=== PATIENT | male | born 1975 | race Caucasian/White ===

== ENCOUNTER 2019-04-07 01:52 | Outpatient (CLI) | payer MEDICAID | END 2019-04-07 01:53 | disposition critical access hospital (66) | LOC: EMS 01:52 | PROVIDERS: ATTEND Surgery | DX: Z03.89 Encounter for observation for other suspected diseases and conditions ruled out (principal); Z59.0 Homelessness ==

== ENCOUNTER 2019-04-07 02:04 | Emergency (ER) | payer MEDICAID ==
[2019-04-07 02:18] VITALS: BP 143/98
--- NOTE | 2019-04-07 02:19 | ED Physician Documentation ---
History of Present Illness - Stated complaint Stated Complaint: HOMELESS - History obtained from History obtained from: Patient, EMS - History of Present Illness Timing: Today Pain level max: 0 Pain level now: 0 - Additonal information Additional information: Patient states that he was [facility] the [place] [facility] today. States he has no where to go. He is from [place]. Patient has no complaints at this time. No medical complaints. He has a bag of his belongings and a cell phone. Review of Systems Constitutional: denies: Fever GI: denies: Vomiting Skin: denies: Rash Psychiatric: denies: Depressed, Suicidal, Homicidal PD PAST MEDICAL HISTORY - Past Medical History Past Medical History: Yes Psych: Other ("PTSS") - Allergies Allergies/Adverse Reactions: Allergies Allergy/AdvReac Type Severity Reaction Status Date / Time No Known Drug Allergies Allergy Verified 04/07/19 02:18 PD ED PE NORMAL - Vitals Vital signs reviewed: Yes - General General: Alert and oriented X 3, No acute distress, Well developed/nourished - HEENT HEENT: Moist mucous membranes, Pharynx benign - Neck Neck: Supple, no meningeal sign - Cardiac Cardiac: RRR, Strong equal pulses - Respiratory Respiratory: No respiratory distress, Clear bilaterally - Abdomen Abdomen: Soft, Non tender, Non distended - Derm Derm: Warm and dry - Extremities Extremities: No edema - Neuro Neuro: Alert and oriented X 3, workforce analyst 2-12 intact, No motor deficit, No sensory deficit, Normal speech - Psych Psych: Normal mood, Normal affect Results - Vitals Vitals: Vital Signs - 24 hr 04/07/19 02:11 Temperature 36 C L Heart Rate 88 Respiratory 15 Rate Blood Pressure 143/98 H O2 Saturation 95 Oxygen O2 Source Room air PD MEDICAL DECISION MAKING - ED course Complexity details: considered differential, d/w patient ED course: Patient with no medical complaints at this time. No emergency medical condition present. Patient will be discharged at this time. Patient became agitated at the time of discharge as he wants to stay in the hospital. Patient was informed that there is no medical reason to keep him in the hospital. Patient was then escorted out of the emergency department by police. This document was made in part using voice recognition software. While efforts are made to proofread this document, sound alike and grammatical errors may occur. Departure - Departure Disposition: 01 Home, Self Care Clinical Impression: Homeless Condition: Good Instructions: ED Screening Exam Medical Nonurgent Follow-Up: your,doctor as needed [Other] Comments: Follow up with your doctor for further care Discharge Date/Time: 04/07/19 02:32
== END 2019-04-07 02:32 | disposition home or self-care (01) ==
LOC: ED 02:04
DX: Z76.89 Persons encountering health services in other specified circumstances (principal); Z59.0 Homelessness
CPT/HCPCS: 99281; 99283

== ENCOUNTER 2019-04-07 05:08 | Outpatient (CLI) | payer MEDICAID | END 2019-04-07 05:09 | disposition critical access hospital (66) | LOC: EMS 05:08 | PROVIDERS: ATTEND Surgery | DX: R45.851 Suicidal ideations (principal) ==

== ENCOUNTER 2019-04-07 05:15 | Emergency (ER) | payer MEDICAID ==
[2019-04-07 05:36] VITALS: BP 154/94
--- NOTE | 2019-04-07 05:39 | ED Physician Documentation ---
History of Present Illness - Stated complaint Stated Complaint: MHE - Chief complaint Chief Complaint: MHE - History obtained from History obtained from: Patient - History of Present Illness Timing: Today Pain level max: 0 Pain level now: 0 Improved by: nothing Worsened by: nothing - Additonal information Additional information: 43-year-old male states that he is currently homeless and wants to go back to [facility]. He does not have any medical complaints at this time. He is not suicidal or homicidal. Review of Systems Constitutional: denies: Fever, Chills Respiratory: denies: Cough GI: denies: Vomiting Musculoskeletal: denies: Neck pain, Back pain, Extremity pain, Joint pain Neurologic: denies: Headache Psychiatric: denies: Depressed, Suicidal, Homicidal, Hallucinations PD PAST MEDICAL HISTORY - Past Medical History Psych: Other - Allergies Allergies/Adverse Reactions: Allergies Allergy/AdvReac Type Severity Reaction Status Date / Time No Known Drug Allergies Allergy Verified 04/07/19 02:18 - Social History Does the pt smoke?: No Smoking Status: Never smoker PD ED PE NORMAL - Vitals Vital signs reviewed: Yes - General General: Alert and oriented X 3, No acute distress, Well developed/nourished - HEENT HEENT: Moist mucous membranes - Neck Neck: Supple, no meningeal sign - Cardiac Cardiac: RRR, Strong equal pulses - Respiratory Respiratory: No respiratory distress, Clear bilaterally - Abdomen Abdomen: Soft, Non tender, Non distended - Derm Derm: Warm and dry - Neuro Neuro: Alert and oriented X 3 - Psych Psych: Normal mood, Normal affect Results - Vitals Vitals: Vital Signs - 24 hr 04/07/19 05:29 Temperature 37 C Heart Rate 94 Respiratory 18 Rate Blood Pressure 154/94 H O2 Saturation 97 Oxygen O2 Source Room air PD MEDICAL DECISION MAKING - ED course Complexity details: considered differential, d/w patient ED course: No emergency medical condition at this time. We were able to procure For him to go back to [facility] where he states he can go back to the [facility]. Not suicidal or homicidal. This document was made in part using voice recognition software. While efforts are made to proofread this document, sound alike and grammatical errors may occur. Departure - Departure Disposition: 01 Home, Self Care Clinical Impression: Homeless Condition: Good Instructions: ED Screening Exam Medical Nonurgent Follow-Up: your,doctor in 1 week [Other] Comments: Follow-up with your doctor for further care. Discharge Date/Time: 04/07/19 06:05
== END 2019-04-07 06:05 | disposition home or self-care (01) ==
LOC: EDUNIT# → ED 05:15
DX: Z76.89 Persons encountering health services in other specified circumstances (principal); Z59.0 Homelessness

== ENCOUNTER 2022-10-21 00:42 | Outpatient (CLI) | payer MEDICAID | END 2022-10-21 00:43 | disposition critical access hospital (66) | LOC: EMS 00:42 | DX: R09.89 Other specified symptoms and signs involving the circulatory and respiratory systems (principal); R11.2 Nausea with vomiting, unspecified | CPT/HCPCS: A0425; A0429; A0999 ==

== ENCOUNTER 2022-10-21 01:00 | Emergency (ER) | payer MEDICAID ==
[2022-10-21 01:13] VITALS: BP 138/94
[2022-10-21] MEDS ORDERED: ONDANSETRON ODT 4 MG TABLET TL STA (01:18)
[2022-10-21] MEDS ORDERED: FAMOTIDINE 20 MG TABLET PO STA (01:18)
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
== END 2022-10-21 02:23 | disposition home or self-care (01) ==
LOC: EDBD → EDUNIT# → ED 01:00
DX: R11.2 Nausea with vomiting, unspecified (principal); K21.9 Gastro-esophageal reflux disease without esophagitis
CPT/HCPCS: 99283; A9270; Q0162

== ENCOUNTER 2024-01-22 22:38 | Outpatient (CLI) | payer MEDICAID | END 2024-01-22 22:39 | disposition critical access hospital (66) | LOC: EMS 22:38 | DX: H92.02 Otalgia, left ear (principal); Y09 Assault by unspecified means; R45.1 Restlessness and agitation; Z59.02 Unsheltered homelessness | CPT/HCPCS: A0425; A0429 ==

== ENCOUNTER 2024-01-22 22:48 | Emergency (ER) | payer MEDICAID ==
[2024-01-22 23:15] VITALS: BP 132/81; O2SAT 98
[2024-01-22] MEDS: IBUPROFEN 600 MG TABLET PO STA (23:55)
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
== END 2024-01-22 23:56 | disposition home or self-care (01) ==
LOC: EDUNIT# → ED 22:48
DX: S00.03XA Contusion of scalp, initial encounter (principal); Y09 Assault by unspecified means; Z91.148 Patient's other noncompliance with medication regimen for other reason; Z59.02 Unsheltered homelessness
CPT/HCPCS: 99283; A9270

== ENCOUNTER 2024-01-31 03:43 | Outpatient (CLI) | payer MEDICAID | END 2024-01-31 03:44 | disposition EMS.NT | LOC: EMS 03:43 | DX: R51.9 Headache, unspecified (principal); Y04.2XXA Assault by strike against or bumped into by another person, initial encounter ==